=== PATIENT | female | born 1940 | race Caucasian/White ===

== ENCOUNTER 2019-11-07 19:06 | Inpatient (IN) ==
[2019-11-07] MEDS ORDERED: SODIUM CHLORIDE 0.9% 500 ML IV STA (19:32)
[2019-11-07] MEDS ORDERED: ONDANSETRON 4 MG/2 ML VIAL IV STA (19:32)
[2019-11-07] MEDS ORDERED: HYDROmorphone 2 MG/1 ML VIAL IV STA ×2 (19:32→23:24)
[2019-11-07] MEDS ORDERED: PANTOPRAZOLE 40 MG VIAL IV STA (19:32)
[2019-11-07 20:06] LABS: Basophils % 0.3 % (0.0-0.8); Eosinophils # 0.1 10*3/uL (0.0-0.87); Hemoglobin 10.8 GM/DL (12.0-16.0); Immature Granulocytes % 0.4 %; Immature Granulocytes Absolute 0.03 #; Lymphocytes # 1.2 10*3/uL (1.4-4.0); Lymphocytes % 18.1 % (21.3-54.2); Mean Corpuscular HGB Conc 31.8 GM/DL (32-36); Mean Corpuscular Volume 94.2 FL (87-102); Mean Platelet Volume 9.7 FL (9.6-12.0); Monocytes % 9.9 % (1.7-12.7); Neutrophils % 70.3 % (38.7-73.9); Platelet Count 242 T/CUMM (130-400); Red Blood Count 3.61 MC/CUMM (3.8-5.5); Red Cell Distribution Width 12.3 % (9.3-17.3); White Blood Count 6.8 T/CUMM (4-12)
[2019-11-07 20:26] LABS: Alanine Aminotransferase 12 U/L (13-56); Albumin 3.2 G/DL (3.4-5.0); Alkaline Phosphatase 100 U/L (45-117); Amylase 83 U/L (25-115); Aspartate Amino Transferase 11 U/L (0-37); Bilirubin,Total < 0.39 MG/DL (0.2-1.0); Blood Urea Nitrogen 20 MG/DL (7-18); Calcium 8.7 MG/DL (8.5-10.1); Estimated Glom Filtration Rate 58 ML/MIN; Glucose 91 MG/DL (74-106); Osmolality,Calculated 255.4 MOS/KG (273-304); Total Protein 5.8 G/DL (6.4-8.3)
[2019-11-07 21:53] LABS: Apearance,Urine CLEAR (Clear); Bilirubin,Urine Negative (Negative); Blood, Urine Negative (Negative); Glucose,Urine (UA) Negative (Negative); Ketones,Urine Negative (Negative); Mucus,Urine Occasional /LPF (Occasional); Nitrite,Urine Positive (Negative); Protein,Urine Negative; RBC,Urine 2 /HPF (0-4); Squamous Epithelial Cell,Urine Occasional /HPF (0-10); Urine Color Amber (Yellow); Urine Specific Gravity 1.032 (1.001-1.035); WBC,Urine 24 /HPF (0-6)
[2019-11-07] MEDS ORDERED: cefTRIAXone 1,000 MG in SODIUM CHLORIDE 0.9% 100 ML IV STA (22:07)
[2019-11-07] MEDS ORDERED: ALBUTEROL 2.5 MG/3 ML NEB RESP TX PRN (23:45)
[2019-11-07] MEDS ORDERED: ACETAMINOPHEN 325 MG TABLET PO PRN (23:45)
[2019-11-07] MEDS ORDERED: DOCUSATE SODIUM 100 MG CAPSULE PO PRN (23:45)
[2019-11-07] MEDS ORDERED: guaiFENesin/DM ER 600-30 MG TABLET PO PRN (23:45)
[2019-11-07] MEDS ORDERED: hydrALAZINE 20 MG/1 ML VIAL IV PRN (23:45)
[2019-11-08] MEDS: SODIUM CHLORIDE 0.9% 1,000 ML IV SCH ×3 (01:43→22:42)
[2019-11-08 04:12] LABS: Basophils % 0.3 % (0.0-0.8); Eosinophils # 0.1 10*3/uL (0.0-0.87); Eosinophils % 1.3 % (0.00-10.9); Hematocrit 32.3 VOL% (35.7-47.0); Hemoglobin 10.2 GM/DL (12.0-16.0); Immature Granulocytes % 0.4 %; Immature Granulocytes Absolute 0.03 #; Lymphocytes # 1.3 10*3/uL (1.4-4.0); Mean Corpuscular HGB Conc 31.6 GM/DL (32-36); Mean Corpuscular Volume 94.2 FL (87-102); Mean Platelet Volume 9.5 FL (9.6-12.0); Monocytes % 10.7 % (1.7-12.7); Neutrophils % 68.3 % (38.7-73.9); Platelet Count 220 T/CUMM (130-400); Red Blood Count 3.43 MC/CUMM (3.8-5.5); Red Cell Distribution Width 12.5 % (9.3-17.3); White Blood Count 6.9 T/CUMM (4-12)
[2019-11-08 04:52] LABS: Albumin 2.9 G/DL (3.4-5.0); Bilirubin,Total 0.7 MG/DL (0.2-1.0); Calcium 8.4 MG/DL (8.5-10.1); Osmolality,Calculated 260.8 MOS/KG (273-304); Risk Ratio 2.61; Total Protein 5.7 G/DL (6.4-8.3); VLDL CHOLESTEROL 10.4 MG/DL
[2019-11-08] MEDS ORDERED: lisinopriL 10 MG TABLET PO SCH (09:00)
[2019-11-08] MEDS: POLYETHYLENE GLYCOL POWDER 17 GM PACK PO SCH (10:16)
[2019-11-08] MEDS: ENOXAPARIN 40 MG/0.4 ML SYRINGE SUBCUT SCH (10:16)
[2019-11-08] MEDS: CARBIDOPA/LEVODOPA 25-100 MG TABLET PO SCH ×3 (10:17→21:04)
[2019-11-08] MEDS: ASPIRIN EC 81 MG TABLET PO SCH (10:18)
[2019-11-08] MEDS: amLODIPine 2.5 MG TABLET PO SCH (10:18)
[2019-11-08] MEDS: PANTOPRAZOLE 40 MG TABLET PO SCH (10:18)
[2019-11-08] MEDS: MULTIVITAMIN (CENTRUM) TABLET PO SCH (10:19)
[2019-11-08] MEDS: LINACLOTIDE 145 MCG CAPSULE PO SCH (10:20)
[2019-11-08] MEDS: OXcarbazepine 300 MG TABLET PO SCH ×2 (10:48→21:05)
[2019-11-08] MEDS: ONDANSETRON 4 MG/2 ML VIAL IV PRN (13:17)
[2019-11-08] MEDS: cefTRIAXone 1,000 MG in SYRINGE 1 EACH IV SCH (21:04)
[2019-11-08] MEDS: ATORVASTATIN 10 MG TABLET PO SCH (21:05)
[2019-11-08] MEDS: DONEPEZIL 10 MG TABLET PO SCH (21:05)
[2019-11-09] MEDS: ZALEPLON 5 MG CAPSULE PO PRN ×2 (00:41→20:18)
[2019-11-09 04:43] LABS: Basophils % 0.4 % (0.0-0.8); Eosinophils # 0.1 10*3/uL (0.0-0.87); Eosinophils % 2.9 % (0.00-10.9); Hematocrit 31.2 VOL% (35.7-47.0); Hemoglobin 9.6 GM/DL (12.0-16.0); Immature Granulocytes % 0.2 %; Immature Granulocytes Absolute 0.01 #; Mean Corpuscular HGB Conc 30.8 GM/DL (32-36); Mean Platelet Volume 9.5 FL (9.6-12.0); Monocytes % 11.9 % (1.7-12.7); Neutrophils % 64.6 % (38.7-73.9); Platelet Count 234 T/CUMM (130-400); Red Blood Count 3.25 MC/CUMM (3.8-5.5); Red Cell Distribution Width 12.5 % (9.3-17.3); White Blood Count 4.8 T/CUMM (4-12)
[2019-11-09 05:09] LABS: Calcium 8.1 MG/DL (8.5-10.1); Osmolality,Calculated 268.1 MOS/KG (273-304)
[2019-11-09] MEDS: MULTIVITAMIN (CENTRUM) TABLET PO SCH (08:33)
[2019-11-09] MEDS: ASPIRIN EC 81 MG TABLET PO SCH (08:33)
[2019-11-09] MEDS: POLYETHYLENE GLYCOL POWDER 17 GM PACK PO SCH (08:33)
[2019-11-09] MEDS: OXcarbazepine 300 MG TABLET PO SCH ×2 (08:33→20:18)
[2019-11-09] MEDS: amLODIPine 2.5 MG TABLET PO SCH (08:33)
[2019-11-09] MEDS: CARBIDOPA/LEVODOPA 25-100 MG TABLET PO SCH ×3 (08:34→20:19)
[2019-11-09] MEDS: PANTOPRAZOLE 40 MG TABLET PO SCH (08:35)
[2019-11-09] MEDS: ENOXAPARIN 40 MG/0.4 ML SYRINGE SUBCUT SCH (08:35)
[2019-11-09] MEDS: LINACLOTIDE 145 MCG CAPSULE PO SCH (08:38)
[2019-11-09] MEDS: SODIUM CHLORIDE 0.9% 1,000 ML IV SCH (08:44)
[2019-11-09] MEDS: lisinopriL 10 MG TABLET PO SCH (09:04)
[2019-11-09] MEDS ORDERED: VANCOMYCIN INJ 2,000 MG in SODIUM CHLORIDE 0.9% 500 ML IV ONE (10:00)
[2019-11-09] MEDS: DONEPEZIL 10 MG TABLET PO SCH (20:18)
[2019-11-09] MEDS: ATORVASTATIN 10 MG TABLET PO SCH (20:19)
[2019-11-09] MEDS: cefTRIAXone 1,000 MG in SYRINGE 1 EACH IV SCH (21:57)
[2019-11-09] MEDS: VANCOMYCIN INJ 1,250 MG in SODIUM CHLORIDE 0.9% 250 ML IV SCH (22:00)
[2019-11-10] MEDS: ONDANSETRON 4 MG/2 ML VIAL IV PRN (00:15)
[2019-11-10] MEDS: amLODIPine 2.5 MG TABLET PO SCH (08:18)
[2019-11-10] MEDS: MULTIVITAMIN (CENTRUM) TABLET PO SCH (08:18)
[2019-11-10] MEDS: LINACLOTIDE 145 MCG CAPSULE PO SCH (08:18)
[2019-11-10] MEDS: ENOXAPARIN 40 MG/0.4 ML SYRINGE SUBCUT SCH (08:18)
[2019-11-10] MEDS: ASPIRIN EC 81 MG TABLET PO SCH (08:18)
[2019-11-10] MEDS: OXcarbazepine 300 MG TABLET PO SCH ×2 (08:18→20:53)
[2019-11-10] MEDS: FUROSEMIDE 20 MG TABLET PO SCH (08:18)
[2019-11-10] MEDS: CARBIDOPA/LEVODOPA 25-100 MG TABLET PO SCH ×3 (08:18→20:52)
[2019-11-10] MEDS: lisinopriL 10 MG TABLET PO SCH (08:18)
[2019-11-10] MEDS: PANTOPRAZOLE 40 MG TABLET PO SCH (08:18)
[2019-11-10] MEDS: POLYETHYLENE GLYCOL POWDER 17 GM PACK PO SCH (08:19)
[2019-11-10] MEDS ORDERED: amLODIPine 10 MG TABLET PO SCH (09:19)
[2019-11-10] MEDS ORDERED: NIFEdipine 10 MG CAPSULE PO PRN (09:19)
[2019-11-10] MEDS: clonazePAM 0.5 MG TABLET PO SCH ×2 (10:40→20:52)
[2019-11-10] MEDS: VANCOMYCIN INJ 1,250 MG in SODIUM CHLORIDE 0.9% 250 ML IV SCH (10:40)
[2019-11-10] MEDS: HALOPERIDOL 1 MG TABLET PO SCH ×2 (10:41→20:52)
[2019-11-10] MEDS: DONEPEZIL 10 MG TABLET PO SCH (20:52)
[2019-11-10] MEDS: ATORVASTATIN 10 MG TABLET PO SCH (20:53)
[2019-11-10] MEDS ORDERED: SUVOREXANT 20 MG PO PRN (21:00)
[2019-11-10] MEDS: cefTRIAXone 1,000 MG in SYRINGE 1 EACH IV SCH (21:00)
[2019-11-11] MEDS: VANCOMYCIN INJ 1,250 MG in SODIUM CHLORIDE 0.9% 250 ML IV SCH ×2 (01:38→14:29)
[2019-11-11 06:06] LABS: Calcium 8.5 MG/DL (8.5-10.1); Osmolality,Calculated 271.7 MOS/KG (273-304)
[2019-11-11] MEDS: lisinopriL 10 MG TABLET PO SCH (08:24)
[2019-11-11] MEDS: clonazePAM 0.5 MG TABLET PO SCH ×2 (08:24→21:54)
[2019-11-11] MEDS: LINACLOTIDE 145 MCG CAPSULE PO SCH (08:24)
[2019-11-11] MEDS: OXcarbazepine 300 MG TABLET PO SCH ×2 (08:25→21:55)
[2019-11-11] MEDS: CARBIDOPA/LEVODOPA 25-100 MG TABLET PO SCH ×3 (08:25→21:55)
[2019-11-11] MEDS: FUROSEMIDE 20 MG TABLET PO SCH (08:25)
[2019-11-11] MEDS: PANTOPRAZOLE 40 MG TABLET PO SCH (08:25)
[2019-11-11] MEDS: ASPIRIN EC 81 MG TABLET PO SCH (08:25)
[2019-11-11] MEDS: MULTIVITAMIN (CENTRUM) TABLET PO SCH (08:25)
[2019-11-11] MEDS: ENOXAPARIN 40 MG/0.4 ML SYRINGE SUBCUT SCH (08:26)
[2019-11-11] MEDS: POLYETHYLENE GLYCOL POWDER 17 GM PACK PO SCH (08:26)
[2019-11-11] MEDS ORDERED: POTASSIUM CHLORIDE 20 MEQ TABLET PO ONE (08:26)
[2019-11-11] MEDS: HALOPERIDOL 1 MG TABLET PO SCH ×2 (09:17→21:55)
[2019-11-11] MEDS: ATORVASTATIN 10 MG TABLET PO SCH (21:55)
[2019-11-11] MEDS: cefTRIAXone 1,000 MG in SYRINGE 1 EACH IV SCH (21:55)
[2019-11-11] MEDS: DONEPEZIL 10 MG TABLET PO SCH (21:55)
[2019-11-12 06:16] LABS: Basophils % 0.6 % (0.0-0.8); Eosinophils # 0.2 10*3/uL (0.0-0.87); Hematocrit 30.7 VOL% (35.7-47.0); Hemoglobin 9.6 GM/DL (12.0-16.0); Immature Granulocytes % 0.5 %; Immature Granulocytes Absolute 0.03 #; Lymphocytes # 1.1 10*3/uL (1.4-4.0); Lymphocytes % 16.3 % (21.3-54.2); Mean Corpuscular HGB Conc 31.3 GM/DL (32-36); Mean Corpuscular Volume 95.3 FL (87-102); Mean Platelet Volume 9.5 FL (9.6-12.0); Monocytes % 11.7 % (1.7-12.7); Neutrophils % 67.9 % (38.7-73.9); Platelet Count 241 T/CUMM (130-400); Red Blood Count 3.22 MC/CUMM (3.8-5.5); White Blood Count 6.6 T/CUMM (4-12)
[2019-11-12 06:36] LABS: Calcium 8.6 MG/DL (8.5-10.1); Osmolality,Calculated 278.3 MOS/KG (273-304)
[2019-11-12] MEDS: MULTIVITAMIN (CENTRUM) TABLET PO SCH (09:46)
[2019-11-12] MEDS: POTASSIUM CHLORIDE 20 MEQ TABLET PO SCH ×2 (09:46→21:08)
[2019-11-12] MEDS: OXcarbazepine 300 MG TABLET PO SCH ×2 (09:46→21:09)
[2019-11-12] MEDS: CARBIDOPA/LEVODOPA 25-100 MG TABLET PO SCH ×3 (09:46→21:07)
[2019-11-12] MEDS: POLYETHYLENE GLYCOL POWDER 17 GM PACK PO SCH (09:47)
[2019-11-12] MEDS: clonazePAM 0.5 MG TABLET PO SCH ×2 (09:47→21:09)
[2019-11-12] MEDS: ASPIRIN EC 81 MG TABLET PO SCH (09:47)
[2019-11-12] MEDS: HALOPERIDOL 1 MG TABLET PO SCH ×2 (09:47→21:10)
[2019-11-12] MEDS: PANTOPRAZOLE 40 MG TABLET PO SCH (09:47)
[2019-11-12] MEDS: SODIUM CHLORIDE 0.9% 1,000 ML IV SCH (09:48)
[2019-11-12] MEDS: ENOXAPARIN 40 MG/0.4 ML SYRINGE SUBCUT SCH (09:48)
[2019-11-12] MEDS: amLODIPine 5 MG TABLET PO SCH (09:50)
[2019-11-12] MEDS: LINACLOTIDE 145 MCG CAPSULE PO SCH (10:49)
[2019-11-12 13:05] LABS: Calcium 8.7 MG/DL (8.5-10.1); Osmolality,Calculated 279.4 MOS/KG (273-304)
[2019-11-12] MEDS: ZALEPLON 5 MG CAPSULE PO PRN (21:04)
[2019-11-12] MEDS: cefTRIAXone 1,000 MG in SYRINGE 1 EACH IV SCH (21:05)
[2019-11-12] MEDS: ATORVASTATIN 10 MG TABLET PO SCH (21:08)
[2019-11-12] MEDS: DONEPEZIL 10 MG TABLET PO SCH (21:09)
[2019-11-13] MEDS: SODIUM CHLORIDE 0.9% 1,000 ML IV SCH ×2 (00:36→12:38)
[2019-11-13 07:18] LABS: Calcium 8.3 MG/DL (8.5-10.1); Osmolality,Calculated 276.5 MOS/KG (273-304)
[2019-11-13] MEDS: ASPIRIN EC 81 MG TABLET PO SCH (08:51)
[2019-11-13] MEDS: CARBIDOPA/LEVODOPA 25-100 MG TABLET PO SCH ×3 (08:52→21:12)
[2019-11-13] MEDS: LINACLOTIDE 145 MCG CAPSULE PO SCH (08:56)
[2019-11-13] MEDS: clonazePAM 0.5 MG TABLET PO SCH ×2 (08:56→21:15)
[2019-11-13] MEDS: POLYETHYLENE GLYCOL POWDER 17 GM PACK PO SCH (08:56)
[2019-11-13] MEDS: PANTOPRAZOLE 40 MG TABLET PO SCH (08:57)
[2019-11-13] MEDS: MULTIVITAMIN (CENTRUM) TABLET PO SCH (08:57)
[2019-11-13] MEDS: amLODIPine 5 MG TABLET PO SCH (08:57)
[2019-11-13] MEDS: HALOPERIDOL 1 MG TABLET PO SCH ×2 (08:57→21:12)
[2019-11-13] MEDS: OXcarbazepine 300 MG TABLET PO SCH ×2 (08:57→21:11)
[2019-11-13] MEDS: HEPARIN 5,000 UNIT/1 ML VIAL SUBCUT SCH ×2 (08:58→21:21)
[2019-11-13 17:38] LABS: Amorphous Crystals,Urine Occasional /HPF (Few); Apearance,Urine Slightly Hazy (Clear); Bacteria,Urine Few /HPF (Few); Bilirubin,Urine Negative (Negative); Blood, Urine Negative (Negative); Glucose,Urine (UA) Negative (Negative); Ketones,Urine Negative (Negative); Mucus,Urine Occasional /LPF (Occasional); Nitrite,Urine Negative (Negative); Protein,Urine Negative; Squamous Epithelial Cell,Urine Occasional /HPF (0-10); Urine Color Yellow (Yellow); Urine Specific Gravity 1.006 (1.001-1.035); Urine Urobilinogen < 2.0 EU/DL (0.2-1.0)
[2019-11-13] MEDS: DONEPEZIL 10 MG TABLET PO SCH (21:11)
[2019-11-13] MEDS: ATORVASTATIN 10 MG TABLET PO SCH (21:12)
[2019-11-13] MEDS: ZALEPLON 5 MG CAPSULE PO PRN (21:12)
[2019-11-13] MEDS: cefTRIAXone 1,000 MG in SYRINGE 1 EACH IV SCH (21:21)
[2019-11-14] MEDS: SODIUM CHLORIDE 0.9% 1,000 ML IV SCH ×2 (02:00→15:40)
[2019-11-14 06:48] LABS: Osmolality,Calculated 279.4 MOS/KG (273-304)
[2019-11-14] MEDS: CARBIDOPA/LEVODOPA 25-100 MG TABLET PO SCH ×3 (09:07→21:11)
[2019-11-14] MEDS: ASPIRIN EC 81 MG TABLET PO SCH (09:07)
[2019-11-14] MEDS: PANTOPRAZOLE 40 MG TABLET PO SCH (09:08)
[2019-11-14] MEDS: MULTIVITAMIN (CENTRUM) TABLET PO SCH (09:08)
[2019-11-14] MEDS: POLYETHYLENE GLYCOL POWDER 17 GM PACK PO SCH (09:08)
[2019-11-14] MEDS: amLODIPine 5 MG TABLET PO SCH (09:08)
[2019-11-14] MEDS: clonazePAM 0.5 MG TABLET PO SCH ×2 (09:08→21:10)
[2019-11-14] MEDS: LINACLOTIDE 145 MCG CAPSULE PO SCH (09:09)
[2019-11-14] MEDS: HALOPERIDOL 1 MG TABLET PO SCH ×2 (09:09→21:11)
[2019-11-14] MEDS: HEPARIN 5,000 UNIT/1 ML VIAL SUBCUT SCH ×2 (09:09→21:12)
[2019-11-14] MEDS: OXcarbazepine 300 MG TABLET PO SCH ×2 (11:37→21:11)
[2019-11-14] MEDS: DONEPEZIL 10 MG TABLET PO SCH (21:11)
[2019-11-14] MEDS: ATORVASTATIN 10 MG TABLET PO SCH (21:11)
[2019-11-14] MEDS: cefTRIAXone 1,000 MG in SYRINGE 1 EACH IV SCH (21:12)
[2019-11-15] MEDS: SODIUM CHLORIDE 0.9% 1,000 ML IV SCH (05:01)
[2019-11-15 07:02] LABS: Calcium 8.6 MG/DL (8.5-10.1); Osmolality,Calculated 280.4 MOS/KG (273-304)
[2019-11-15] MEDS: POLYETHYLENE GLYCOL POWDER 17 GM PACK PO SCH (09:23)
[2019-11-15] MEDS: amLODIPine 5 MG TABLET PO SCH (09:24)
[2019-11-15] MEDS: CARBIDOPA/LEVODOPA 25-100 MG TABLET PO SCH ×2 (09:24→14:25)
[2019-11-15] MEDS: OXcarbazepine 300 MG TABLET PO SCH (09:24)
[2019-11-15] MEDS: HALOPERIDOL 1 MG TABLET PO SCH (09:24)
[2019-11-15] MEDS: clonazePAM 0.5 MG TABLET PO SCH (09:24)
[2019-11-15] MEDS: ASPIRIN EC 81 MG TABLET PO SCH (09:24)
[2019-11-15] MEDS: MULTIVITAMIN (CENTRUM) TABLET PO SCH (09:24)
[2019-11-15] MEDS: LINACLOTIDE 145 MCG CAPSULE PO SCH (09:25)
[2019-11-15] MEDS: HEPARIN 5,000 UNIT/1 ML VIAL SUBCUT SCH (09:25)
[2019-11-15] MEDS: PANTOPRAZOLE 40 MG TABLET PO SCH (09:25)
[2019-11-15 14:26] VITALS: BP 144/57
== END 2019-11-15 14:58 | disposition home or self-care (01) | DRG 689 ==
LOC: EDBD → EDUNIT# → N.ED 19:06 → N.EDINP 23:45 → SUATTDRO 23:45 → N.CC 11-08 01:00 → N.2E 11-10 15:23
PROVIDERS: ADMIT Internal Medicine; ATTEND Internal Medicine

== ENCOUNTER 2021-08-11 16:40 | Inpatient (IN) ==
[2021-08-11] MEDS ORDERED: SODIUM CHLORIDE 0.9% 1,000 ML IV STA ×3 (17:00→21:16)
[2021-08-11] MEDS ORDERED: ATROPINE 1 MG/10 ML SYRINGE IV STA (17:19)
[2021-08-11 17:27] LABS: Basophils % 0.2 % (0.0-0.8); Eosinophils % 0.3 % (0.00-10.9); Hematocrit 49.5 VOL% (35.7-47.0); Hemoglobin 15.6 GM/DL (12.0-16.0); Immature Granulocytes % 0.5 %; Immature Granulocytes Absolute 0.06 #; Lymphocytes # 1.2 10*3/uL (1.4-4.0); Lymphocytes % 10.2 % (21.3-54.2); Mean Corpuscular HGB Conc 31.5 GM/DL (32-36); Mean Corpuscular Volume 87.6 FL (87-102); Mean Platelet Volume 10.1 FL (9.6-12.0); Monocytes % 1.3 % (1.7-12.7); Neutrophils % 87.5 % (38.7-73.9); Platelet Count 331 T/CUMM (130-400); Red Blood Count 5.65 MC/CUMM (3.8-5.5); Red Cell Distribution Width 12.5 % (9.3-17.3); White Blood Count 11.6 T/CUMM (4-12)
[2021-08-11 18:22] LABS: Bilirubin,Urine Negative (Negative); Blood, Urine Negative (Negative); Glucose,Urine (UA) Negative (Negative); Ketones,Urine Negative (Negative); Nitrite,Urine Negative (Negative); Protein,Urine 100 MG/DL; RBC,Urine 141 /HPF (0-4); Urine Appearance CLOUDY (Clear); Urine Color Yellow (Yellow); Urine Specific Gravity 1.011 (1.001-1.035); Urine Urobilinogen < 2.0 EU/DL (0.2-1.0)
[2021-08-11] MEDS ORDERED: cefTRIAXone 1,000 MG in SODIUM CHLORIDE 0.9% 100 ML IV STA (19:07)
[2021-08-11] MEDS ORDERED: GLUCAGON 1 MG VIAL IM PRN (21:18)
[2021-08-11] MEDS ORDERED: DEXTROSE 50% 25 GM/50 ML VIAL IV PRN (21:18)
[2021-08-11] MEDS ORDERED: ONDANSETRON 4 MG/2 ML VIAL IV PRN (21:18)
[2021-08-11 21:58] LABS: Alanine Aminotransferase 12 U/L (13-56); Albumin 2.6 G/DL (3.4-5.0); Alkaline Phosphatase 101 U/L (45-117); Aspartate Amino Transferase 30 U/L (0-37); Bilirubin,Total < 0.39 MG/DL (0.20-1.00); Blood Urea Nitrogen 31 MG/DL (7-18); Calcium 8.8 MG/DL (8.5-10.1); Carbon Dioxide 19 MMOL/L (21-32); Estimated Glom Filtration Rate 36 ML/MIN; Glucose 119 MG/DL (74-106); Osmolality,Calculated 269.7 MOS/KG (273-304); Potassium 4.1 MMOL/L (3.5-5.1); Sodium 131 MMOL/L (136-145)
[2021-08-11] MEDS: LACTATED RINGERS 1,000 ML IV SCH (22:12)
[2021-08-11] MEDS ORDERED: cefTRIAXone 1,000 MG in SODIUM CHLORIDE 0.9% 100 ML IV ONE (22:30)
[2021-08-11] MEDS: NOREPINEPHRINE 8 MG in SODIUM CHLORIDE 0.9% 242 ML IV PRN (23:48)
[2021-08-12] MEDS ORDERED: LEVOFLOXACIN INJ 750 MG/150 ML PREMIX IV SCH (03:00)
[2021-08-12] MEDS ORDERED: AMPICILLIN INJ 2,000 MG in SODIUM CHLORIDE 0.9% 100 ML IV SCH (05:00)
[2021-08-12 06:26] LABS: Alanine Aminotransferase < 6 U/L (13-56); Albumin < 0.6 G/DL (3.4-5.0); Alkaline Phosphatase 21 U/L (45-117); Aspartate Amino Transferase 13 U/L (0-37); Bilirubin,Total < 0.39 MG/DL (0.20-1.00); Blood Urea Nitrogen 14 MG/DL (7-18); Calcium 6.4 MG/DL (8.5-10.1); Carbon Dioxide 6 MMOL/L (21-32); Estimated Glom Filtration Rate 124 ML/MIN; Osmolality,Calculated 265.2 MOS/KG (273-304); Potassium 4.3 MMOL/L (3.5-5.1); Sodium 134 MMOL/L (136-145); Total Protein < 2.0 G/DL (6.4-8.2)
[2021-08-12 06:29] LABS: Glucose 44 MG/DL (74-106)
[2021-08-12] MEDS ORDERED: SODIUM BICARBONATE 50 MEQ/50 ML VIAL IV ONE (07:46)
[2021-08-12 08:15] LABS: ABG Base Excess 1.7 MMOL/L (-2.5-2.5); ABG HCO3 25.9 MMOL/L (20-26); ABG Oxygen Saturation 99.6 % (95-100); ABG PCO2 41.2 MM HG (35-48); ABG PH 7.414 (7.35-7.45); ABG TCO2 23.2 MMOL/L (23-27); Allen Test Positive; Pt O2 Delivery Device Simple Mask
[2021-08-12] MEDS: HYDROCORTISONE 100 MG VIAL IV SCH ×3 (08:23→23:37)
[2021-08-12] MEDS ORDERED: SODIUM CHLORIDE 0.9% 1,000 ML IV ONE (08:36)
[2021-08-12] MEDS ORDERED: PANTOPRAZOLE 40 MG TABLET PO SCH (09:00)
[2021-08-12 09:17] LABS: Basophils % 0.5 % (0.0-0.8); Hematocrit 37.6 VOL% (35.7-47.0); Immature Granulocytes % 0.3 %; Immature Granulocytes Absolute 0.01 #; Lymphocytes # 0.3 10*3/uL (1.4-4.0); Mean Corpuscular HGB Conc 32.7 GM/DL (32-36); Mean Corpuscular Volume 87.6 FL (87-102); Mean Platelet Volume 10.9 FL (9.6-12.0); Monocytes % 4.3 % (1.7-12.7); Neutrophils % 86.9 % (38.7-73.9); Red Cell Distribution Width 12.6 % (9.3-17.3)
[2021-08-12] MEDS: ASPIRIN CHEW 81 MG TABLET PO SCH (09:18)
[2021-08-12] MEDS: CARBIDOPA/LEVODOPA 10-100 MG TABLET PO SCH ×3 (09:19→20:13)
[2021-08-12] MEDS: LACTATED RINGERS 1,000 ML IV SCH ×4 (09:19→20:17)
[2021-08-12 09:23] LABS: Hemoglobin 12.3 GM/DL (12.0-16.0); Platelet Count 248 T/CUMM (130-400); Red Blood Count 4.29 MC/CUMM (3.8-5.5)
[2021-08-12] MEDS: ENOXAPARIN 30 MG/0.3 ML SYRINGE SUBCUT SCH (09:24)
[2021-08-12] MEDS: SODIUM BICARB INJ 150 MEQ in DEXTROSE 5% 1,000 ML IV SCH (09:24)
[2021-08-12 09:25] LABS: Alanine Aminotransferase 16 U/L (13-56); Albumin 1.9 G/DL (3.4-5.0); Alkaline Phosphatase 74 U/L (45-117); Aspartate Amino Transferase 26 U/L (0-37); Bilirubin,Total < 0.39 MG/DL (0.20-1.00); Blood Urea Nitrogen 38 MG/DL (7-18); Calcium 7.7 MG/DL (8.5-10.1); Carbon Dioxide 21 MMOL/L (21-32); Estimated Glom Filtration Rate 33 ML/MIN; Glucose 144 MG/DL (74-106); Osmolality,Calculated 284.8 MOS/KG (273-304); Potassium 4.1 MMOL/L (3.5-5.1); Sodium 137 MMOL/L (136-145); Total Protein 4.4 G/DL (6.4-8.2)
[2021-08-12 10:02] LABS: Band Neutrophils 42 % (0-10); Lymphocytes 9 % (20-55); Metamyelocytes 11 %; Platelet Estimate Normal; Segmented Neutrophils 32 % (50-85); Total Cells Counted 100
[2021-08-12 10:03] LABS: Anisocytosis 1+; Burr Cells Slight; Ovalocytes Few
[2021-08-12] MEDS: VANCOMYCIN 50 MG/ML 60 ML/BOTTLE PO SCH ×3 (12:04→23:36)
[2021-08-12 12:37] LABS: Albumin 2.2 G/DL (3.4-5.0); Bilirubin,Total 1.6 MG/DL (0.20-1.00); Calcium 8.5 MG/DL (8.5-10.1); Potassium 4.4 MMOL/L (3.5-5.1); Total Protein 5.1 G/DL (6.4-8.2)
[2021-08-12] MEDS: ZINC OXIDE 16% PASTE 57 GM TUBE TOP SCH ×2 (13:07→20:12)
[2021-08-12] MEDS: ALBUTEROL/IPRATROPIUM 3 ML NEB RESP TX SCH ×2 (13:20→19:55)
[2021-08-12] MEDS ORDERED: LACTATED RINGERS 500 ML IV ONE ×2 (14:24→16:42)
[2021-08-12] MEDS: MORPHINE 2 MG/1 ML SYRINGE IV PRN (20:14)
[2021-08-12] MEDS: PANTOPRAZOLE 40 MG VIAL IV SCH (20:26)
[2021-08-12] MEDS: ACETAMINOPHEN 325 MG TABLET PO PRN (20:27)
[2021-08-12] MEDS ORDERED: cefTRIAXone 2,000 MG in SODIUM CHLORIDE 0.9% 100 ML IV SCH (21:00)
[2021-08-13] MEDS: ALBUTEROL/IPRATROPIUM 3 ML NEB RESP TX SCH ×4 (01:00→20:40)
[2021-08-13] MEDS: NOREPINEPHRINE 8 MG in SODIUM CHLORIDE 0.9% 242 ML IV PRN (01:05)
[2021-08-13] MEDS: SODIUM BICARB INJ 150 MEQ in DEXTROSE 5% 1,000 ML IV SCH ×2 (03:23→22:31)
[2021-08-13] MEDS: LACTATED RINGERS 1,000 ML IV SCH ×6 (03:24→23:39)
[2021-08-13] MEDS: VANCOMYCIN 50 MG/ML 60 ML/BOTTLE PO SCH (05:20)
[2021-08-13 05:25] LABS: Basophils # 0.1 10*3/uL (0.0-0.2); Basophils % 0.8 % (0.0-0.8); Hematocrit 34.9 VOL% (35.7-47.0); Immature Granulocytes % 0.6 %; Immature Granulocytes Absolute 0.05 #; Lymphocytes # 0.7 10*3/uL (1.4-4.0); Lymphocytes % 8.3 % (21.3-54.2); Mean Corpuscular HGB Conc 34.4 GM/DL (32-36); Mean Corpuscular Volume 83.9 FL (87-102); Mean Platelet Volume 11.1 FL (9.6-12.0); Monocytes % 9.3 % (1.7-12.7); Platelet Count 231 T/CUMM (130-400); Red Blood Count 4.16 MC/CUMM (3.8-5.5); Red Cell Distribution Width 12.4 % (9.3-17.3); White Blood Count 7.8 T/CUMM (4-12)
[2021-08-13 05:44] LABS: Alanine Aminotransferase 26 U/L (13-56); Albumin 1.9 G/DL (3.4-5.0); Alkaline Phosphatase 64 U/L (45-117); Aspartate Amino Transferase 42 U/L (0-37); Bilirubin,Total < 0.39 MG/DL (0.20-1.00); Blood Urea Nitrogen 50 MG/DL (7-18); Calcium 8.6 MG/DL (8.5-10.1); Carbon Dioxide 27 MMOL/L (21-32); Estimated Glom Filtration Rate 28 ML/MIN; Glucose 140 MG/DL (74-106); Osmolality,Calculated 284.1 MOS/KG (273-304); Potassium 4.5 MMOL/L (3.5-5.1); Sodium 135 MMOL/L (136-145); Total Protein 4.7 G/DL (6.4-8.2)
[2021-08-13 05:52] LABS: Band Neutrophils 1 % (0-10); Lymphocytes 11 % (20-55); Platelet Estimate Adequate; Segmented Neutrophils 78 % (50-85); Total Cells Counted 100
[2021-08-13] MEDS ORDERED: METOPROLOL TARTRATE 5 MG/5 ML VIAL IV ONE ×3 (06:34→13:15)
[2021-08-13] MEDS: HYDROCORTISONE 100 MG VIAL IV SCH ×3 (09:00→23:42)
[2021-08-13] MEDS: PANTOPRAZOLE 40 MG VIAL IV SCH ×2 (09:13→20:12)
[2021-08-13] MEDS: CARBIDOPA/LEVODOPA 10-100 MG TABLET PO SCH ×3 (09:17→20:11)
[2021-08-13] MEDS: ZINC OXIDE 16% PASTE 57 GM TUBE TOP SCH ×2 (09:17→20:12)
[2021-08-13] MEDS: PIPERACILLIN/TAZOBACTAM 3,375 MG in SODIUM CHLORIDE 0.9% 100 ML IV SCH ×3 (09:17→23:42)
[2021-08-13] MEDS: ASPIRIN CHEW 81 MG TABLET PO SCH (09:17)
[2021-08-13] MEDS: ENOXAPARIN 30 MG/0.3 ML SYRINGE SUBCUT SCH (09:17)
[2021-08-13] MEDS ORDERED: SODIUM CHLORIDE 0.9% 1,000 ML IV ONE ×2 (10:33→17:18)
[2021-08-13] MEDS ORDERED: METOPROLOL TARTRATE 5 MG/5 ML VIAL IV SCH (12:00)
[2021-08-13] MEDS: VANCOMYCIN 50 MG/ML 60 ML/BOTTLE NG SCH ×3 (12:00→23:40)
[2021-08-13] MEDS: ACETAMINOPHEN 325 MG TABLET PO PRN (20:12)
[2021-08-13] MEDS: METOPROLOL TARTRATE 5 MG/5 ML VIAL IV PRN (22:33)
[2021-08-14] MEDS: ALBUTEROL/IPRATROPIUM 3 ML NEB RESP TX SCH ×4 (01:48→19:10)
[2021-08-14] MEDS: METOPROLOL TARTRATE 5 MG/5 ML VIAL IV PRN (04:35)
[2021-08-14 04:55] LABS: Basophils % 0.6 % (0.0-0.8); Hematocrit 27.5 VOL% (35.7-47.0); Immature Granulocytes % 0.3 %; Immature Granulocytes Absolute 0.02 #; Lymphocytes # 0.4 10*3/uL (1.4-4.0); Lymphocytes % 6.1 % (21.3-54.2); Mean Corpuscular HGB Conc 33.1 GM/DL (32-36); Mean Corpuscular Volume 85.4 FL (87-102); Mean Platelet Volume 11.1 FL (9.6-12.0); Monocytes % 7.2 % (1.7-12.7); Neutrophils % 85.8 % (38.7-73.9); Red Blood Count 3.22 MC/CUMM (3.8-5.5); Red Cell Distribution Width 12.6 % (9.3-17.3); White Blood Count 7.3 T/CUMM (4-12)
[2021-08-14 04:56] LABS: Hemoglobin 9.1 GM/DL (12.0-16.0); Platelet Count 149 T/CUMM (130-400)
[2021-08-14 05:16] LABS: Alanine Aminotransferase 19 U/L (13-56); Albumin 1.6 G/DL (3.4-5.0); Alkaline Phosphatase 50 U/L (45-117); Aspartate Amino Transferase 33 U/L (0-37); Bilirubin,Total < 0.39 MG/DL (0.20-1.00); Blood Urea Nitrogen 41 MG/DL (7-18); Calcium 7.6 MG/DL (8.5-10.1); Carbon Dioxide 28 MMOL/L (21-32); Estimated Glom Filtration Rate 36 ML/MIN; Glucose 104 MG/DL (74-106); Osmolality,Calculated 288.4 MOS/KG (273-304); Potassium 3.7 MMOL/L (3.5-5.1); Sodium 140 MMOL/L (136-145); Total Protein 4.2 G/DL (6.4-8.2)
[2021-08-14 05:35] LABS: Band Neutrophils 3 % (0-10); Lymphocytes 12 % (20-55); Metamyelocytes 1 %; Myelocytes 2 %; Platelet Estimate Normal; Segmented Neutrophils 78 % (50-85); Total Cells Counted 100
[2021-08-14] MEDS: LACTATED RINGERS 1,000 ML IV SCH ×4 (06:23→23:59)
[2021-08-14] MEDS: VANCOMYCIN 50 MG/ML 60 ML/BOTTLE NG SCH ×4 (06:23→23:58)
[2021-08-14] MEDS: HYDROCORTISONE 100 MG VIAL IV SCH ×3 (07:49→18:15)
[2021-08-14] MEDS: PIPERACILLIN/TAZOBACTAM 3,375 MG in SODIUM CHLORIDE 0.9% 100 ML IV SCH ×3 (07:50→23:59)
[2021-08-14] MEDS: ENOXAPARIN 30 MG/0.3 ML SYRINGE SUBCUT SCH (08:24)
[2021-08-14] MEDS: CARBIDOPA/LEVODOPA 10-100 MG TABLET PO SCH ×3 (08:24→20:38)
[2021-08-14] MEDS: ASPIRIN CHEW 81 MG TABLET PO SCH (08:24)
[2021-08-14] MEDS: PANTOPRAZOLE 40 MG VIAL IV SCH ×2 (08:25→20:39)
[2021-08-14] MEDS: ZINC OXIDE 16% PASTE 57 GM TUBE TOP SCH ×2 (08:53→20:39)
[2021-08-14] MEDS ORDERED: HYDROCORTISONE 100 MG VIAL IV SCH (18:00)
[2021-08-15] MEDS: ALBUTEROL/IPRATROPIUM 3 ML NEB RESP TX SCH ×4 (01:14→19:15)
[2021-08-15] MEDS: ACETAMINOPHEN 325 MG TABLET PO PRN (01:58)
[2021-08-15] MEDS: HYDROCORTISONE 100 MG VIAL IV SCH ×3 (01:59→18:18)
[2021-08-15] MEDS: LACTATED RINGERS 1,000 ML IV SCH ×5 (02:30→22:40)
[2021-08-15] MEDS: IBUPROFEN 100 MG/5 ML UDCUP PO PRN ×2 (04:54→21:55)
[2021-08-15] MEDS: VANCOMYCIN 50 MG/ML 60 ML/BOTTLE NG SCH ×4 (05:09→23:39)
[2021-08-15 05:18] LABS: Basophils # 0.1 10*3/uL (0.0-0.2); Basophils % 0.4 % (0.0-0.8); Eosinophils % 0.1 % (0.00-10.9); Hemoglobin 8.1 GM/DL (12.0-16.0); Immature Granulocytes % 1.6 %; Immature Granulocytes Absolute 0.19 #; Lymphocytes # 0.4 10*3/uL (1.4-4.0); Lymphocytes % 3.6 % (21.3-54.2); Mean Corpuscular HGB Conc 32.4 GM/DL (32-36); Mean Corpuscular Volume 86.2 FL (87-102); Mean Platelet Volume 10.9 FL (9.6-12.0); Monocytes % 5.4 % (1.7-12.7); Neutrophils % 88.9 % (38.7-73.9); Platelet Count 143 T/CUMM (130-400); Red Cell Distribution Width 12.7 % (9.3-17.3); White Blood Count 12.1 T/CUMM (4-12)
[2021-08-15 05:38] LABS: Calcium 7.8 MG/DL (8.5-10.1); Osmolality,Calculated 291.8 MOS/KG (273-304); Potassium 2.7 MMOL/L (3.5-5.1)
[2021-08-15 05:57] LABS: Band Neutrophils 2 % (0-10); Lymphocytes 5 % (20-55); Segmented Neutrophils 89 % (50-85); Total Cells Counted 100
[2021-08-15 05:58] LABS: Hypochromasia 1+; Microcytosis 1+; Ovalocytes Few; Target Cells Slight
[2021-08-15] MEDS: POTASSIUM CHLORIDE RIDER 20 MEQ/100 ML PREMIX IV PRN ×5 (06:50→22:27)
[2021-08-15] MEDS: PIPERACILLIN/TAZOBACTAM 3,375 MG in SODIUM CHLORIDE 0.9% 100 ML IV SCH ×3 (07:45→23:38)
[2021-08-15] MEDS: CARBIDOPA/LEVODOPA 10-100 MG TABLET PO SCH ×3 (08:47→20:51)
[2021-08-15] MEDS: ENOXAPARIN 30 MG/0.3 ML SYRINGE SUBCUT SCH (08:48)
[2021-08-15] MEDS: ASPIRIN CHEW 81 MG TABLET PO SCH (08:48)
[2021-08-15] MEDS: PANTOPRAZOLE 40 MG VIAL IV SCH ×2 (08:49→20:52)
[2021-08-15] MEDS: ZINC OXIDE 16% PASTE 57 GM TUBE TOP SCH ×2 (09:42→20:52)
[2021-08-15] MEDS: POTASSIUM CHLORIDE RIDER 10 MEQ/100 ML PREMIX IV PRN (11:08)
[2021-08-15 16:06] LABS: Calcium 7.7 MG/DL (8.5-10.1); Osmolality,Calculated 292.8 MOS/KG (273-304); Potassium 3.1 MMOL/L (3.5-5.1)
[2021-08-15] MEDS: MORPHINE 2 MG/1 ML SYRINGE IV PRN (21:01)
[2021-08-15] MEDS ORDERED: MORPHINE 2 MG/1 ML SYRINGE IV ONE (21:29)
[2021-08-15 21:46] LABS: Basophils % 0.2 % (0.0-0.8); Hemoglobin 7.6 GM/DL (12.0-16.0); Immature Granulocytes % 2.8 %; Immature Granulocytes Absolute 0.36 #; Lymphocytes # 0.5 10*3/uL (1.4-4.0); Lymphocytes % 4.2 % (21.3-54.2); Mean Corpuscular HGB Conc 31.7 GM/DL (32-36); Mean Corpuscular Volume 87.3 FL (87-102); Mean Platelet Volume 10.5 FL (9.6-12.0); Monocytes % 6.5 % (1.7-12.7); Neutrophils % 86.3 % (38.7-73.9); Platelet Count 134 T/CUMM (130-400); Red Blood Count 2.75 MC/CUMM (3.8-5.5); Red Cell Distribution Width 13.2 % (9.3-17.3); White Blood Count 12.8 T/CUMM (4-12)
[2021-08-15 22:23] LABS: Band Neutrophils 9 % (0-10); Lymphocytes 10 % (20-55); Metamyelocytes 2 %; Segmented Neutrophils 74 % (50-85); Total Cells Counted 100
[2021-08-15 22:24] LABS: Hypochromasia 2+; Ovalocytes 1+; Platelet Estimate Normal
[2021-08-15 22:26] LABS: Microcytosis 1+
[2021-08-15] MEDS ORDERED: clonazePAM 0.5 MG TABLET PO ONE (23:27)
[2021-08-15] MEDS ORDERED: ZIPRASIDONE 20 MG/1 ML VIAL IM ONE (23:31)
[2021-08-16] MEDS: POTASSIUM CHLORIDE RIDER 10 MEQ/100 ML PREMIX IV PRN (00:28)
[2021-08-16] MEDS: ALBUTEROL/IPRATROPIUM 3 ML NEB RESP TX SCH ×4 (01:10→20:55)
[2021-08-16] MEDS: HYDROCORTISONE 100 MG VIAL IV SCH ×3 (01:34→18:15)
[2021-08-16] MEDS: MORPHINE 2 MG/1 ML SYRINGE IV PRN (04:40)
[2021-08-16] MEDS: LACTATED RINGERS 1,000 ML IV SCH ×3 (05:29→15:44)
[2021-08-16] MEDS: VANCOMYCIN 50 MG/ML 60 ML/BOTTLE NG SCH ×4 (05:30→23:45)
[2021-08-16 05:40] LABS: Calcium 8.1 MG/DL (8.5-10.1); Osmolality,Calculated 292.7 MOS/KG (273-304); Potassium 3.7 MMOL/L (3.5-5.1)
[2021-08-16] MEDS: PANTOPRAZOLE 40 MG VIAL IV SCH ×2 (08:12→21:56)
[2021-08-16] MEDS: IBUPROFEN 100 MG/5 ML UDCUP PO PRN (08:12)
[2021-08-16] MEDS: CARBIDOPA/LEVODOPA 10-100 MG TABLET PO SCH ×3 (08:13→21:55)
[2021-08-16 09:02] LABS: Basophils % 0.3 % (0.0-0.8); Hematocrit 24.5 VOL% (35.7-47.0); Hemoglobin 7.7 GM/DL (12.0-16.0); Immature Granulocytes % 1.4 %; Immature Granulocytes Absolute 0.17 #; Lymphocytes # 0.5 10*3/uL (1.4-4.0); Lymphocytes % 4.3 % (21.3-54.2); Mean Corpuscular HGB Conc 31.4 GM/DL (32-36); Mean Corpuscular Volume 88.8 FL (87-102); Mean Platelet Volume 10.8 FL (9.6-12.0); Monocytes % 5.5 % (1.7-12.7); Neutrophils % 88.5 % (38.7-73.9); Platelet Count 141 T/CUMM (130-400); Red Blood Count 2.76 MC/CUMM (3.8-5.5); Red Cell Distribution Width 13.4 % (9.3-17.3); White Blood Count 12.1 T/CUMM (4-12)
[2021-08-16 09:36] LABS: Band Neutrophils 1 % (0-10); Lymphocytes 6 % (20-55); Metamyelocytes 1 %; Segmented Neutrophils 86 % (50-85); Total Cells Counted 100
[2021-08-16] MEDS: ASPIRIN CHEW 81 MG TABLET PO SCH (09:42)
[2021-08-16] MEDS: ZINC OXIDE 16% PASTE 57 GM TUBE TOP SCH ×2 (09:43→21:56)
[2021-08-16 09:48] LABS: Hypochromasia 1+; Microcytosis 1+; Ovalocytes Few; Platelet Estimate Adequate
[2021-08-16] MEDS: PIPERACILLIN/TAZOBACTAM 3,375 MG in SODIUM CHLORIDE 0.9% 100 ML IV SCH (09:51)
[2021-08-16] MEDS: ACETAMINOPHEN 325 MG TABLET PO PRN (21:56)
[2021-08-17] MEDS: HYDROCORTISONE 100 MG VIAL IV SCH ×4 (01:41→21:53)
[2021-08-17 04:36] LABS: Basophils % 0.2 % (0.0-0.8); Hematocrit 24.5 VOL% (35.7-47.0); Hemoglobin 7.8 GM/DL (12.0-16.0); Immature Granulocytes % 2.9 %; Immature Granulocytes Absolute 0.36 #; Lymphocytes # 0.8 10*3/uL (1.4-4.0); Lymphocytes % 6.7 % (21.3-54.2); Mean Corpuscular HGB Conc 31.8 GM/DL (32-36); Mean Corpuscular Volume 87.8 FL (87-102); Monocytes % 6.5 % (1.7-12.7); Neutrophils % 83.7 % (38.7-73.9); Platelet Count 141 T/CUMM (130-400); Red Blood Count 2.79 MC/CUMM (3.8-5.5); Red Cell Distribution Width 13.3 % (9.3-17.3); White Blood Count 12.4 T/CUMM (4-12)
[2021-08-17 04:50] LABS: Calcium 8.2 MG/DL (8.5-10.1); Osmolality,Calculated 293.7 MOS/KG (273-304)
[2021-08-17 05:00] LABS: Band Neutrophils 2 % (0-10); Lymphocytes 7 % (20-55); Segmented Neutrophils 87 % (50-85); Total Cells Counted 100
[2021-08-17 05:01] LABS: Hypochromasia 1+; Microcytosis 1+; Platelet Estimate Adequate
[2021-08-17] MEDS: ALBUTEROL/IPRATROPIUM 3 ML NEB RESP TX SCH ×4 (05:14→19:00)
[2021-08-17] MEDS: POTASSIUM CHLORIDE RIDER 20 MEQ/100 ML PREMIX IV PRN ×3 (05:19→17:13)
[2021-08-17] MEDS: LACTATED RINGERS 1,000 ML IV SCH (05:20)
[2021-08-17] MEDS: VANCOMYCIN 50 MG/ML 60 ML/BOTTLE NG SCH ×4 (05:22→23:16)
[2021-08-17] MEDS: CARBIDOPA/LEVODOPA 10-100 MG TABLET PO SCH ×3 (08:02→20:31)
[2021-08-17] MEDS: ASPIRIN CHEW 81 MG TABLET PO SCH (08:02)
[2021-08-17] MEDS: PANTOPRAZOLE 40 MG VIAL IV SCH ×2 (08:02→20:32)
[2021-08-17] MEDS: ZINC OXIDE 16% PASTE 57 GM TUBE TOP SCH ×2 (08:04→20:33)
[2021-08-17] MEDS: POTASSIUM CHLORIDE RIDER 10 MEQ/100 ML PREMIX IV PRN (09:23)
[2021-08-17] MEDS ORDERED: DOCUSATE SODIUM 100 MG CAPSULE PO PRN (10:13)
[2021-08-17] MEDS ORDERED: MAGNESIUM SULF RIDER 4 GM/100 ML PREMIX IV PRN (10:24)
[2021-08-17] MEDS ORDERED: MAGNESIUM SULF RIDER 2 GM/50 ML PREMIX IV PRN (10:24)
[2021-08-17] MEDS: clonazePAM 0.5 MG TABLET PO SCH ×3 (12:14→20:32)
[2021-08-17] MEDS: lisinopriL 10 MG TABLET PO SCH (12:14)
[2021-08-17] MEDS: METOPROLOL TARTRATE 5 MG/5 ML VIAL IV PRN ×2 (12:30→20:31)
[2021-08-17] MEDS: MORPHINE 2 MG/1 ML SYRINGE IV PRN ×4 (13:19→23:15)
[2021-08-17] MEDS ORDERED: fentaNYL 25 MCG/HR PATCH TRANSDERM SCH (14:00)
[2021-08-17] MEDS: ZIPRASIDONE 20 MG CAPSULE PO SCH (16:56)
[2021-08-17] MEDS: AMANTADINE 100 MG CAPSULE PO SCH (20:31)
[2021-08-17] MEDS: ACETAMINOPHEN 325 MG TABLET PO PRN (20:31)
[2021-08-17] MEDS: OXcarbazepine 300 MG TABLET PO SCH (20:31)
[2021-08-17] MEDS: MEMANTINE 5 MG TABLET PO SCH (20:33)
[2021-08-17] MEDS: GABAPENTIN 100 MG CAPSULE PO SCH (20:33)
[2021-08-17] MEDS: DONEPEZIL 10 MG TABLET PO SCH (20:33)
[2021-08-17] MEDS ORDERED: ATORVASTATIN 10 MG TABLET PO SCH (21:00)
[2021-08-17] MEDS: POTASSIUM CHLORIDE INJ 20 MEQ in LACTATED RINGERS 1,000 ML IV SCH (21:52)
[2021-08-18] MEDS: ALBUTEROL/IPRATROPIUM 3 ML NEB RESP TX SCH ×4 (01:00→19:25)
[2021-08-18] MEDS: MORPHINE 2 MG/1 ML SYRINGE IV PRN ×4 (02:40→22:37)
[2021-08-18] MEDS: METOPROLOL TARTRATE 5 MG/5 ML VIAL IV PRN ×2 (06:00→16:04)
[2021-08-18] MEDS: VANCOMYCIN 50 MG/ML 60 ML/BOTTLE NG SCH ×4 (06:03→23:18)
[2021-08-18 06:54] LABS: Basophils # 0.1 10*3/uL (0.0-0.2); Basophils % 0.5 % (0.0-0.8); Eosinophils % 0.1 % (0.00-10.9); Hematocrit 31.4 VOL% (35.7-47.0); Immature Granulocytes % 3.1 %; Immature Granulocytes Absolute 0.58 #; Lymphocytes # 1.4 10*3/uL (1.4-4.0); Lymphocytes % 7.8 % (21.3-54.2); Mean Corpuscular HGB Conc 31.5 GM/DL (32-36); Mean Corpuscular Volume 89.7 FL (87-102); Mean Platelet Volume 11.2 FL (9.6-12.0); Monocytes % 6.8 % (1.7-12.7); NRBC # 0.04 10*3/uL; Neutrophils % 81.7 % (38.7-73.9); Red Cell Distribution Width 14.1 % (9.3-17.3)
[2021-08-18 06:56] LABS: Hemoglobin 9.9 GM/DL (12.0-16.0); Platelet Count 201 T/CUMM (130-400); White Blood Count 18.5 T/CUMM (4-12)
[2021-08-18 07:01] LABS: Bilirubin,Total 0.9 MG/DL (0.20-1.00); Calcium 8.4 MG/DL (8.5-10.1); Potassium 4.6 MMOL/L (3.5-5.1); Total Protein 5.3 G/DL (6.4-8.2)
[2021-08-18 07:12] LABS: Band Neutrophils 2 % (0-10); Lymphocytes 7 % (20-55); Platelet Estimate Normal; Segmented Neutrophils 85 % (50-85); Total Cells Counted 100
[2021-08-18] MEDS ORDERED: ESCITALOPRAM 10 MG TABLET PO SCH (09:00)
[2021-08-18] MEDS: lisinopriL 10 MG TABLET PO SCH (09:16)
[2021-08-18] MEDS: OXcarbazepine 300 MG TABLET PO SCH ×2 (09:16→22:05)
[2021-08-18] MEDS: clonazePAM 0.5 MG TABLET PO SCH ×4 (09:16→22:05)
[2021-08-18] MEDS: MEMANTINE 5 MG TABLET PO SCH ×2 (09:17→22:05)
[2021-08-18] MEDS: ASPIRIN CHEW 81 MG TABLET PO SCH (09:17)
[2021-08-18] MEDS: AMANTADINE 100 MG CAPSULE PO SCH ×2 (09:17→22:05)
[2021-08-18] MEDS: CARBIDOPA/LEVODOPA 10-100 MG TABLET PO SCH ×3 (09:17→22:05)
[2021-08-18] MEDS: PANTOPRAZOLE 40 MG VIAL IV SCH ×2 (09:18→22:05)
[2021-08-18] MEDS: ZINC OXIDE 16% PASTE 57 GM TUBE TOP SCH ×2 (09:18→22:08)
[2021-08-18] MEDS: POTASSIUM CHLORIDE INJ 20 MEQ in LACTATED RINGERS 1,000 ML IV SCH ×2 (09:19→18:03)
[2021-08-18] MEDS: HYDROCORTISONE 100 MG VIAL IV SCH ×2 (11:23→22:46)
[2021-08-18] MEDS: ZIPRASIDONE 20 MG CAPSULE PO SCH ×2 (11:25→18:02)
[2021-08-18 12:12] LABS: Basophils # 0.1 10*3/uL (0.0-0.2); Basophils % 0.3 % (0.0-0.8); Hematocrit 30.9 VOL% (35.7-47.0); Hemoglobin 9.5 GM/DL (12.0-16.0); Immature Granulocytes % 2.4 %; Immature Granulocytes Absolute 0.48 #; Lymphocytes # 1.2 10*3/uL (1.4-4.0); Mean Corpuscular HGB Conc 30.7 GM/DL (32-36); Mean Corpuscular Volume 88.8 FL (87-102); Mean Platelet Volume 11.4 FL (9.6-12.0); Monocytes % 4.2 % (1.7-12.7); NRBC # 0.06 10*3/uL; Neutrophils % 87.1 % (38.7-73.9); Platelet Count 182 T/CUMM (130-400); Red Blood Count 3.48 MC/CUMM (3.8-5.5); Red Cell Distribution Width 14.1 % (9.3-17.3); White Blood Count 20.4 T/CUMM (4-12)
[2021-08-18 12:50] LABS: Alanine Aminotransferase 401 U/L (13-56); Alkaline Phosphatase 83 U/L (45-117); Aspartate Amino Transferase 869 U/L (0-37); Bilirubin,Total < 0.39 MG/DL (0.20-1.00); Blood Urea Nitrogen 25 MG/DL (7-18); Calcium 8.5 MG/DL (8.5-10.1); Carbon Dioxide 25 MMOL/L (21-32); Estimated Glom Filtration Rate 67 ML/MIN; Glucose 160 MG/DL (74-106); Osmolality,Calculated 292.8 MOS/KG (273-304); Potassium 4.8 MMOL/L (3.5-5.1); Sodium 144 MMOL/L (136-145); Total Protein 5.2 G/DL (6.4-8.2)
[2021-08-18 12:51] LABS: Atypical Lymphocytes Moderate; Band Neutrophils 1 % (0-10); Lymphocytes 4 % (20-55); Nucleated Red Blood Cells 1 (0-5); Segmented Neutrophils 92 % (50-85); Total Cells Counted 100; Toxic Granulation 1+
[2021-08-18 12:53] LABS: Elliptocytes Few; Schistocytes Few
[2021-08-18 12:54] LABS: Platelet Estimate Normal
[2021-08-18] MEDS: GABAPENTIN 100 MG CAPSULE PO SCH (22:05)
[2021-08-18] MEDS: DONEPEZIL 10 MG TABLET PO SCH (22:05)
[2021-08-19 00:29] VITALS: BP 120/57
[2021-08-19] MEDS: ALBUTEROL/IPRATROPIUM 3 ML NEB RESP TX SCH (00:56)
[2021-08-19] MEDS: METOPROLOL TARTRATE 5 MG/5 ML VIAL IV PRN (01:12)
[2021-08-19] MEDS: MORPHINE 2 MG/1 ML SYRINGE IV PRN (01:17)
[2021-08-19] MEDS: POTASSIUM CHLORIDE INJ 20 MEQ in LACTATED RINGERS 1,000 ML IV SCH (03:20)
== END 2021-08-19 03:39 | disposition expired | DRG 871 ==
LOC: EDUNIT# → EDBD → N.ED 16:40 → SUATTDRO 21:18 → N.EDINP 21:18 → N.TELEN 22:47 → N.CC 08-12 00:32 → N.3E 08-18 03:29
PROVIDERS: ADMIT Internal Medicine Geriatric Medicine; ATTEND Internal Medicine